=== PATIENT | female | born 2000 | race African-American/Black ===

== ENCOUNTER 2022-10-05 11:56 | Emergency (ER) | payer OTHER ==
[2022-10-05 12:13] VITALS: BP 132/91; PULSE 92; RESP 16; TEMP 98.7; BMI 19.2
[2022-10-05] MEDS ORDERED: IBUPROFEN 600 MG TABLET (FP) PO ONE ×2 (12:34→13:05)
[2022-10-05] MEDS ORDERED: ACETAMINOPHEN 500 MG TABLET (FP) PO ONE (12:34)
[2022-10-05] MEDS ORDERED: ACETAMINOPHEN 500 MG TABLET (FP) ONE (13:05)
== END 2022-10-05 13:25 | disposition home or self-care (01) ==
LOC: JERFT 11:56
DX: S69.92XA Unspecified injury of left wrist, hand and finger(s), initial encounter (principal); W23.1XXA Caught, crushed, jammed, or pinched between stationary objects, initial encounter; Y99.0 Civilian activity done for income or pay
CPT/HCPCS: 73130-TC-LT-FY; 99283-25